=== PATIENT | male | born 1975 | race Caucasian/White ===

== ENCOUNTER → 2020-06-27 08:03 | Outpatient (CLI) | payer OTHER | END | disposition home or self-care (01) | LOC: D.MRI 08:00 | PROVIDERS: ATTEND Family Medicine | DX: M54.12 Radiculopathy, cervical region (principal) ==

== ENCOUNTER 2020-08-25 08:57 | Emergency (ER) | payer OTHER ==
[~2020-08-25] VITALS: Ht 172.7 cm; Wt 81.8 kg
[2020-08-25 09:09] VITALS: BP 147/79; Ht 172.7 cm; Wt 81.8 kg
== END 2020-08-25 10:22 | disposition home or self-care (01) ==
LOC: D.ER 08:57
DX: S09.90XA Unspecified injury of head, initial encounter (principal); M54.12 Radiculopathy, cervical region; W20.8XXA Other cause of strike by thrown, projected or falling object, initial encounter; Y93.9 Activity, unspecified; Y92.9 Unspecified place or not applicable